=== PATIENT | female | born 1945 | race Caucasian/White ===

== ENCOUNTER → 2018-04-14 10:04 | Outpatient (CLI) | payer MEDICARE, SELFPAY ==
--- NOTE | 2018-04-14 | DI.MG.S_ITS ---
BILATERAL DIGITAL SCREENING MAMMOGRAM 3D/2D WITH CAD: 04/14/2018 CLINICAL: Routine screening. Family history of breast cancer. Comparison is made to exams dated: 03/04/2016 mammogram, 02/23/2015 mammogram, and 11/04/2013 mammogram - [facility]. There are scattered fibroglandular elements in both breasts. Current study was also evaluated with a Computer Aided Detection (CAD) system. There is an asymmetry in the right breast middle depth lateral region seen on the craniocaudal view only. No other significant masses, calcifications, or other findings are seen in either breast. IMPRESSION: INCOMPLETE: NEEDS ADDITIONAL IMAGING EVALUATION The asymmetry in the right breast is indeterminate. Additional views with possible ultrasound are recommended. This exam was interpreted at Station ID: [id number]. NOTE: For mammograms, a report in lay terms will be sent to the patient. Approximately 15% of breast malignancies will not be visualized mammographically. In the management of a palpable breast mass, a negative mammogram must not discourage biopsy of a clinically suspicious lesion. Electronically Signed By: Gian jean/evangelina:04/14/2018 11:21:38 letter sent: Additional Imaging Needed ACR BI-RADS Category 0: Incomplete 3340F
[2018-04-14 11:17] LABS: Add Manual Diff / Slide Review NO; Basophils Percent Auto 0.7 % (0-2); Eosinophils Percent Auto 3.1 % (2-4); Hematocrit 41.3 % (36-46); Hemoglobin 13.9 g/dL (12.0-16.0); Lymphocytes Percent Auto 27.8 % (25-40); Mean Corpuscular HGB Conc 33.7 % (30-36); Mean Corpuscular Hemoglobin 30.2 PG (26-34); Mean Corpuscular Volume 89.4 fL (80-100); Monocytes Percent Auto 10.5 % (3-14); Neutrophils Absolute Auto 3300 /uL (3000-5900); Neutrophils Percent Auto 57.9 % (50-75); Platelet Count 265 X10^3/uL (150-400); Red Blood Cell Count 4.62 X10^6/uL (4.0-5.2); White Blood Cell Count 5.8 X10^3/uL (4.5-11.0)
[2018-04-14 11:42] LABS: Alanine Aminotransferase 22 IU/L (9-52); Albumin 4.3 g/dL (3.5-5.0); Albumin Globulin Ratio 1.3 (1.0-2.8); Alkaline Phosphatase 69 U/L (38-126); Aspartate Aminotransferase 25 IU/L (14-36); BUN Creatinine Ratio 21.3 (6-22); Bilirubin Total 0.6 mg/dL (0.2-1.3); Blood Urea Nitrogen 17 mg/dL (7-17); Calcium 9.3 mg/dL (8.4-10.2); Carbon Dioxide 29 mmol/L (22-32); Chloride 103 mmol/L (98-107); Cholesterol 256 mg/dL (140-199); Estimated Glomerular Filt Rate > 60.0 mL/min (>60); Globulin 3.4 g/dL (1.7-4.1); Glucose 88 mg/dL (80-110); HDL Cholesterol 83 mg/dL (40-60); HEMOLYSIS < 15 (0-50); LDL Cholesterol Calculated 138 mg/dL (<100); Potassium 4.1 mmol/L (3.4-5.1); Sodium 143 mmol/L (137-145); Total Protein 7.7 g/dL (6.3-8.2); Triglycerides 174 mg/dL (35-150)
== END ==
PROVIDERS: Family Provider Family Medicine; PCP Family Medicine; Visit Provider Family Medicine
DX: Z12.31 Encounter for screening mammogram for malignant neoplasm of breast (principal); Z80.3 Family history of malignant neoplasm of breast; K57.92 Diverticulitis of intestine, part unspecified, without perforation or abscess without bleeding; E78.5 Hyperlipidemia, unspecified
CPT/HCPCS: 36415; 77063; 77067; 80053; 80061; 85025

== ENCOUNTER → 2018-04-16 10:06 | Outpatient (CLI) | payer MEDICARE, SELFPAY ==
--- NOTE | 2018-04-16 | DI.MG.S_ITS ---
UNILATERAL RIGHT DIGITAL DIAGNOSTIC MAMMOGRAM 3D/2D WITH ADDITIONAL VIEWS: 04/16/2018 CLINICAL: Additional evaluation requested from prior study. Family history of breast cancer. Comparison is made to exams dated: 04/14/2018 mammogram, 03/26/2017 mammogram, and 03/04/2016 mammogram - [facility]. There are scattered fibroglandular elements in the right breast. Prior mammographic finding is no longer seen in the right breast. This is consistent with overlapping fibroglandular tissue. No significant masses, calcifications, or other findings are seen in the breast. IMPRESSION: NEGATIVE There is no mammographic evidence of malignancy. A 1 year screening mammogram is recommended. This exam was interpreted at Station ID: [id number]. NOTE: For mammograms, a report in lay terms will be sent to the patient. Approximately 15% of breast malignancies will not be visualized mammographically. In the management of a palpable breast mass, a negative mammogram must not discourage biopsy of a clinically suspicious lesion. Electronically Signed By: Gian jean/evangelina:04/16/2018 12:30:44 letter sent: Normal Exam ACR BI-RADS Category 1: Negative 3341F
== END ==
PROVIDERS: Family Provider Family Medicine; PCP Family Medicine; Visit Provider Family Medicine
DX: R92.8 Other abnormal and inconclusive findings on diagnostic imaging of breast (principal); Z80.3 Family history of malignant neoplasm of breast
CPT/HCPCS: 77065; G0279

== ENCOUNTER → 2018-08-09 09:13 | Outpatient (CLI) | payer MEDICARE, SELFPAY ==
[2018-08-09 10:46] LABS: Alanine Aminotransferase 29 IU/L (9-52); Albumin 4.4 g/dL (3.5-5.0); Albumin Globulin Ratio 1.5 (1.0-2.8); Alkaline Phosphatase 66 U/L (38-126); Aspartate Aminotransferase 29 IU/L (14-36); BUN Creatinine Ratio 23.8 (6-22); Bilirubin Total 0.8 mg/dL (0.2-1.3); Blood Urea Nitrogen 19 mg/dL (7-17); Calcium 9.4 mg/dL (8.4-10.2); Carbon Dioxide 29 mmol/L (22-32); Chloride 104 mmol/L (98-107); Cholesterol 173 mg/dL (140-199); Estimated Glomerular Filt Rate > 60.0 mL/min (>60); Globulin 2.9 g/dL (1.7-4.1); Glucose 89 mg/dL (80-110); HDL Cholesterol 73 mg/dL (40-60); HEMOLYSIS < 15 (0-50); LDL Cholesterol Calculated 81 mg/dL (<100); Potassium 3.9 mmol/L (3.4-5.1); Sodium 144 mmol/L (137-145); Total Protein 7.3 g/dL (6.3-8.2); Triglycerides 93 mg/dL (35-150)
== END ==
PROVIDERS: Family Provider Family Medicine; PCP Family Medicine; Visit Provider Family Medicine
DX: E78.5 Hyperlipidemia, unspecified (principal)
CPT/HCPCS: 36415; 80053; 80061

== ENCOUNTER → 2019-05-10 10:20 | Outpatient (CLI) | payer MEDICARE, SELFPAY ==
--- NOTE | 2019-05-10 | DI.MG.S_ITS ---
BILATERAL DIGITAL SCREENING MAMMOGRAM 3D/2D WITH CAD: 05/10/2019 CLINICAL: Routine screening. Family history of breast cancer. Comparison is made to exams dated: 04/16/2018 mammogram, 04/14/2018 mammogram, 03/26/2017 mammogram, and 03/04/2016 mammogram - [facility]. There are scattered fibroglandular elements in both breasts. Current study was also evaluated with a Computer Aided Detection (CAD) system. No significant masses, calcifications, or other findings are seen in either breast. There has been no significant interval change. IMPRESSION: NEGATIVE There is no mammographic evidence of malignancy. A 1 year screening mammogram is recommended. This exam was interpreted at Station ID: [id number]. NOTE: For mammograms, a report in lay terms will be sent to the patient. Approximately 15% of breast malignancies will not be visualized mammographically. In the management of a palpable breast mass, a negative mammogram must not discourage biopsy of a clinically suspicious lesion. Electronically Signed By: Manjula guzman/evangelina:05/10/2019 13:02:08 letter sent: Normal Exam ACR BI-RADS Category 1: Negative 3341F
[2019-05-10 11:19] LABS: Add Manual Diff / Slide Review NO; Basophils Absolute Auto 0 /uL (0-100); Basophils Percent Auto 0.5 % (0-2); Eosinophils Absolute Auto 200 /uL (0-450); Eosinophils Percent Auto 2.8 % (2-4); Hematocrit 42.1 % (36-46); Hemoglobin 14.1 g/dL (12.0-16.0); Lymphocytes Absolute Auto 1600 /uL (1100-4500); Lymphocytes Percent Auto 22.5 % (25-40); Mean Corpuscular HGB Conc 33.6 % (30-36); Mean Corpuscular Hemoglobin 29.7 PG (26-34); Mean Corpuscular Volume 88.4 fL (80-100); Monocytes Absolute Auto 600 /uL (0-900); Monocytes Percent Auto 8.6 % (3-14); Neutrophils Absolute Auto 4600 /uL (1500-7000); Neutrophils Percent Auto 65.6 % (50-75); Platelet Count 245 X10^3/uL (150-400); Red Blood Cell Count 4.76 X10^6/uL (4.0-5.2); Red Cell Distribution Width 13.7 % (11.6-14.8)
[2019-05-10 11:43] LABS: Alanine Aminotransferase 53 IU/L (9-52); Albumin 4.5 g/dL (3.5-5.0); Albumin Globulin Ratio 1.5 (1.0-2.8); Alkaline Phosphatase 154 U/L (38-126); Aspartate Aminotransferase 49 IU/L (14-36); BUN Creatinine Ratio 21.1 (6-22); Bilirubin Total 0.5 mg/dL (0.2-1.3); Blood Urea Nitrogen 19 mg/dL (7-17); Calcium 9.6 mg/dL (8.4-10.2); Carbon Dioxide 29 mmol/L (22-32); Chloride 104 mmol/L (98-107); Cholesterol 174 mg/dL (140-199); Estimated Glomerular Filt Rate > 60.0 mL/min (>60); Glucose 86 mg/dL (80-110); HDL Cholesterol 95 mg/dL (40-60); HEMOLYSIS < 15 (0-50); LDL Cholesterol Calculated 66 mg/dL (<100); Potassium 3.9 mmol/L (3.4-5.1); Sodium 143 mmol/L (137-145); Total Protein 7.5 g/dL (6.3-8.2); Triglycerides 64 mg/dL (35-150)
== END ==
PROVIDERS: PCP Family Medicine; Visit Provider Family Medicine
DX: Z00.00 Encounter for general adult medical examination without abnormal findings (principal); Z12.31 Encounter for screening mammogram for malignant neoplasm of breast; Z80.3 Family history of malignant neoplasm of breast; E78.5 Hyperlipidemia, unspecified; Z13.6 Encounter for screening for cardiovascular disorders
CPT/HCPCS: 36415; 77063; 77067; 80053; 80061; 85025

== ENCOUNTER → 2019-08-18 11:38 | Outpatient (CLI) | payer MEDICARE, SELFPAY ==
[2019-08-18 12:48] LABS: Alanine Aminotransferase 42 IU/L (9-52); Albumin 4.5 g/dL (3.5-5.0); Albumin Globulin Ratio 1.6 (1.0-2.8); Alkaline Phosphatase 138 U/L (38-126); Aspartate Aminotransferase 42 IU/L (14-36); Bilirubin Total 0.7 mg/dL (0.2-1.3); Blood Urea Nitrogen 16 mg/dL (7-17); Calcium 9.5 mg/dL (8.4-10.2); Carbon Dioxide 29 mmol/L (22-32); Chloride 104 mmol/L (98-107); Estimated Glomerular Filt Rate > 60.0 mL/min (>60); Globulin 2.8 g/dL (1.7-4.1); Glucose 91 mg/dL (80-110); HEMOLYSIS < 15 (0-50); Potassium 4.3 mmol/L (3.4-5.1); Sodium 139 mmol/L (137-145); Total Protein 7.3 g/dL (6.3-8.2)
== END ==
PROVIDERS: PCP Family Medicine; Visit Provider Family Medicine
DX: R74.0 Nonspecific elevation of levels of transaminase and lactic acid dehydrogenase [LDH] (principal)
CPT/HCPCS: 36415; 80053

== ENCOUNTER → 2019-11-21 10:12 | Outpatient (CLI) | payer MEDICARE, SELFPAY ==
[2019-11-21 11:56] LABS: Alanine Aminotransferase 20 IU/L (<35); Albumin 4.4 g/dL (3.5-5.0); Albumin Globulin Ratio 1.4 (1.0-2.8); Alkaline Phosphatase 86 U/L (38-126); Aspartate Aminotransferase 27 IU/L (14-36); BUN Creatinine Ratio 17.8 (6-22); Bilirubin Total 0.6 mg/dL (0.2-1.3); Blood Urea Nitrogen 16 mg/dL (7-17); Calcium 9.5 mg/dL (8.4-10.2); Carbon Dioxide 26 mmol/L (22-32); Chloride 104 mmol/L (98-107); Cholesterol 244 mg/dL (140-199); Estimated Glomerular Filt Rate > 60.0 mL/min (>60); Globulin 3.1 g/dL (1.7-4.1); Glucose 95 mg/dL (80-110); HDL Cholesterol 67 mg/dL (40-60); HEMOLYSIS < 15 (0-50); LDL Cholesterol Calculated 142 mg/dL (<100); Sodium 139 mmol/L (137-145); Total Protein 7.5 g/dL (6.3-8.2); Triglycerides 176 mg/dL (35-150)
== END ==
PROVIDERS: PCP Family Medicine; Visit Provider Family Medicine
DX: E78.5 Hyperlipidemia, unspecified (principal); R94.5 Abnormal results of liver function studies
CPT/HCPCS: 36415; 80053; 80061

== ENCOUNTER → 2020-07-24 11:03 | Outpatient (CLI) | payer MEDICARE, SELFPAY ==
--- NOTE | 2020-07-24 | DI.MG.S_ITS ---
BILATERAL DIGITAL SCREENING MAMMOGRAM 3D/2D WITH CAD: 07/24/2020 CLINICAL: Routine screening. Family history of breast cancer. Comparison is made to exams dated: 05/10/2019 mammogram, 04/14/2018 mammogram, and 03/26/2017 mammogram - [facility]. There are scattered fibroglandular elements in both breasts. Current study was also evaluated with a Computer Aided Detection (CAD) system. No significant masses, calcifications, or other findings are seen in either breast. There has been no significant interval change. IMPRESSION: NEGATIVE There is no mammographic evidence of malignancy. A 1 year screening mammogram is recommended. This exam was interpreted at Station ID: [id number]. NOTE: For mammograms, a report in lay terms will be sent to the patient. Approximately 15% of breast malignancies will not be visualized mammographically. In the management of a palpable breast mass, a negative mammogram must not discourage biopsy of a clinically suspicious lesion. Electronically Signed By: Cameron Jay M.D., jr/evangelina:07/24/2020 11:43:09 letter sent: Normal Exam ACR BI-RADS Category 1: Negative 3341F
== END ==
PROVIDERS: PCP Family Medicine; Referring Provider Family Medicine; Visit Provider Family Medicine
DX: Z12.31 Encounter for screening mammogram for malignant neoplasm of breast (principal); Z80.3 Family history of malignant neoplasm of breast
CPT/HCPCS: 77063; 77067

== ENCOUNTER → 2020-08-23 09:35 | Outpatient (CLI) | payer MEDICARE, SELFPAY ==
[2020-08-23 12:09] LABS: Alanine Aminotransferase 21 IU/L (<35); Albumin 4.2 g/dL (3.5-5.0); Albumin Globulin Ratio 1.6 (1.0-2.8); Alkaline Phosphatase 85 U/L (38-126); Aspartate Aminotransferase 32 IU/L (14-36); Bilirubin Total 0.6 mg/dL (0.2-1.3); Blood Urea Nitrogen 15 mg/dL (7-17); Calcium 9.7 mg/dL (8.4-10.2); Carbon Dioxide 30 mmol/L (22-32); Chloride 105 mmol/L (98-107); Cholesterol 190 mg/dL (140-199); Estimated Glomerular Filt Rate > 60.0 mL/min (>60); Globulin 2.6 g/dL (1.7-4.1); Glucose 91 mg/dL (80-110); HDL Cholesterol 102 mg/dL (40-60); HEMOLYSIS < 15 (0-50); LDL Cholesterol Calculated 66 mg/dL (<100); Potassium 4.2 mmol/L (3.4-5.1); Sodium 139 mmol/L (137-145); Total Protein 6.8 g/dL (6.3-8.2); Triglycerides 110 mg/dL (35-150)
== END ==
PROVIDERS: PCP Family Medicine; Referring Provider Family Medicine; Visit Provider Family Medicine
DX: E66.3 Overweight (principal); E78.5 Hyperlipidemia, unspecified; R94.5 Abnormal results of liver function studies
CPT/HCPCS: 36415; 80053; 80061

== ENCOUNTER → 2020-09-13 14:41 | Outpatient (CLI) | payer MEDICARE, SELFPAY | PROVIDERS: PCP Family Medicine; Referring Provider Family Medicine; Visit Provider Family Medicine | DX: M85.852 Other specified disorders of bone density and structure, left thigh (principal); Z78.0 Asymptomatic menopausal state; Z82.62 Family history of osteoporosis | CPT/HCPCS: 77080 ==

== ENCOUNTER → 2021-08-23 08:35 | Outpatient (CLI) | payer OTHER, SELFPAY ==
--- NOTE | 2021-08-23 | DI.MG.S_ITS ---
BILATERAL DIGITAL SCREENING MAMMOGRAM 3D/2D WITH CAD: 08/23/2021 CLINICAL: Routine screening. Family history of breast cancer. Comparison is made to exams dated: 07/24/2020 mammogram, 05/10/2019 mammogram, 04/16/2018 mammogram, and 04/14/2018 mammogram - [facility]. There are scattered fibroglandular elements in both breasts. Current study was also evaluated with a Computer Aided Detection (CAD) system. There are benign vascular calcifications in both breasts. No significant masses, calcifications, or other findings are seen in either breast. There has been no significant interval change. IMPRESSION: BENIGN There is no mammographic evidence of malignancy. A 1 year screening mammogram is recommended. This exam was interpreted at Station ID: [id number]. NOTE: For mammograms, a report in lay terms will be sent to the patient. Approximately 15% of breast malignancies will not be visualized mammographically. In the management of a palpable breast mass, a negative mammogram must not discourage biopsy of a clinically suspicious lesion. Electronically Signed By: Chino Moreno acr/penrad:08/23/2021 09:03:33 letter sent: Normal Exam ACR BI-RADS Category 2: Benign Finding(s) 3342F
== END ==
PROVIDERS: PCP Family Medicine; Referring Provider Family Medicine; Visit Provider Family Medicine
DX: Z12.31 Encounter for screening mammogram for malignant neoplasm of breast (principal); Z80.3 Family history of malignant neoplasm of breast
CPT/HCPCS: 77063; 77067

== ENCOUNTER → 2021-11-08 09:46 | Outpatient (CLI) | payer OTHER, SELFPAY ==
[2021-11-08 13:14] LABS: Alanine Aminotransferase 14 IU/L (<35); Albumin 4.2 g/dL (3.5-5.0); Albumin Globulin Ratio 1.5 (1.0-2.8); Alkaline Phosphatase 70 U/L (38-126); Aspartate Aminotransferase 26 IU/L (14-36); BUN Creatinine Ratio 16.1 (6-22); Bilirubin Total 0.6 mg/dL (0.2-1.3); Blood Urea Nitrogen 14 mg/dL (7-17); Calcium 9.5 mg/dL (8.4-10.2); Carbon Dioxide 30 mmol/L (22-32); Chloride 104 mmol/L (98-107); Cholesterol 231 mg/dL (140-199); Estimated Glomerular Filt Rate > 60.0 mL/min (>60); Globulin 2.8 g/dL (1.7-4.1); Glucose 91 mg/dL (80-110); HDL Cholesterol 79 mg/dL (40-60); HEMOLYSIS < 15 (0-50); LDL Cholesterol Calculated 130 mg/dL (<100); Potassium 4.3 mmol/L (3.4-5.1); Sodium 140 mmol/L (137-145); Triglycerides 111 mg/dL (35-150)
== END ==
PROVIDERS: PCP Family Medicine; Referring Provider Family Medicine; Visit Provider Family Medicine
DX: E78.5 Hyperlipidemia, unspecified (principal); E66.3 Overweight; R79.89 Other specified abnormal findings of blood chemistry
CPT/HCPCS: 36415; 80053; 80061

== ENCOUNTER → 2021-12-31 09:42 | Outpatient (CLI) | payer OTHER, SELFPAY ==
[2021-12-31 11:52] LABS: BUN Creatinine Ratio 18.3 (6-22); Blood Urea Nitrogen 15 mg/dL (7-17); Calcium 9.6 mg/dL (8.4-10.2); Carbon Dioxide 30 mmol/L (22-32); Chloride 104 mmol/L (98-107); Estimated Glomerular Filt Rate > 60.0 mL/min (>60); Glucose 101 mg/dL (80-110); HEMOLYSIS < 15 (0-50); Potassium 4.1 mmol/L (3.4-5.1); Sodium 140 mmol/L (137-145)
== END ==
PROVIDERS: PCP Family Medicine; Referring Provider Urology; Visit Provider Urology
DX: N32.81 Overactive bladder (principal); Z85.51 Personal history of malignant neoplasm of bladder
CPT/HCPCS: 36415; 51798; 80048; 99214

== ENCOUNTER → 2022-01-01 13:36 | Outpatient (CLI) | payer OTHER, SELFPAY ==
[2022-01-01 14:25] LABS: Appearance Urine UA CLEAR; Bilirubin Urine UA NEGATIVE (NEGATIVE); Color Urine UA YELLOW; Glucose Urine UA NEGATIVE (Negative); Ketones Urine UA NEGATIVE (NEGATIVE); Leukocyte Esterase Urine UA NEGATIVE (NEGATIVE); Nitrite Urine UA NEGATIVE (Negative); Occult Blood Urine UA TRACE-LYSED (Negative); Protein Urine UA NEGATIVE (Negative); Specific Gravity Urine UA <=1.005 (1.000-1.035); Urobilinogen Urine UA 0.2 E.U./dL (0.2)
[2022-01-01 14:28] LABS: Bacteria Urine None Seen; Culture Indicated Urine Cult Not Indicated; RBC Urine None Seen (0-5/HPF); Urine Comments Microscopic Normal; WBC Urine None Seen (0-5/HPF)
== END ==
PROVIDERS: PCP Family Medicine; Referring Provider Urology; Visit Provider Urology
DX: R30.0 Dysuria (principal)
CPT/HCPCS: 81001

== ENCOUNTER → 2022-01-08 09:49 | Outpatient (CLI) | payer OTHER, SELFPAY ==
--- NOTE | 2022-01-08 09:50 | DI.CT.S_ITS ---
PROCEDURE: CT ABDOMEN PELVIS WO/W CON INDICATIONS: History of bladder cancer TECHNIQUE: Optional 5 mm thick noncontrast images acquired from the diaphragm to the symphysis pubis. After the administration of intravenous contrast, 5 mm thick images acquired from the diaphragm to the symphysis pubis after a 10-minute delay. 2 mm thick coronal and sagittal reformats were then performed of the kidneys and ureters. For radiation dose reduction, the following was used: automated exposure control, adjustment of mA and/or kV according to patient size. COMPARISON: [facility], CT, ABDOMEN/PELVIS WITH CONTRAST, 03/28/2016, 12:23. FINDINGS: Image quality: Excellent. Lung bases: Lung bases are clear. Heart size is normal. Urinary system: Both kidneys are normal in size, without hydronephrosis or nephrolithiasis on pre-contrast images. No perinephric fat stranding. There is normal bilateral renal enhancement. Renal calyces appear normal in morphology when filled with contrast. Opacified portions of both ureters demonstrate normal caliber. The urinary bladder is not well distended. No calcified bladder stones. Other solid organs: Liver is normal in size and enhancement. A 1.3 cm peripherally calcified lesion is seen in the left hepatic lobe, which may reflect a hemangioma (3-30). Gallbladder is within normal limits . Biliary system is non dilated. Pancreas enhances normally. Spleen is normal in size and enhancement. No adrenal nodules. Peritoneum and bowel: Small hiatal hernia. No evidence of intestinal obstruction. Colonic diverticulosis with focal wall thickening in the sigmoid colon (3-140). No free fluid or air. Normal appearance of the appendix. Nodes and vessels: No retroperitoneal or mesenteric adenopathy by size criteria. Aorta and inferior vena cava are normal in size. Abdominal wall: Small fat containing periumbilical hernia. Pelvis: No pathologic free pelvic fluid. No inguinal hernias or adenopathy. Bones: Diffuse osteopenia. Multifocal degenerative change. Minimal, superior endplate compression deformities of T10 and T12. IMPRESSION: 1. Acute sigmoid diverticulitis versus chronic change. 2. No evidence of obstructive uropathy. Dictated by: Cassius Jenkins M.D. on 01/08/2022 at 10:45 Approved by: Cassius Jenkins M.D. on 01/08/2022 at 10:59
== END ==
PROVIDERS: PCP Family Medicine; Referring Provider Urology; Visit Provider Urology
DX: R39.9 Unspecified symptoms and signs involving the genitourinary system (principal); K44.9 Diaphragmatic hernia without obstruction or gangrene; K42.9 Umbilical hernia without obstruction or gangrene; K57.30 Diverticulosis of large intestine without perforation or abscess without bleeding; R79.89 Other specified abnormal findings of blood chemistry; Z85.51 Personal history of malignant neoplasm of bladder
CPT/HCPCS: 74178; Q9967

== ENCOUNTER → 2022-08-07 11:43 | Outpatient (CLI) | payer OTHER, SELFPAY ==
[2022-08-07 13:26] LABS: Add Manual Diff / Slide Review NO; Appearance Urine UA CLEAR; Basophils Absolute Auto 0 /uL (0-100); Basophils Percent Auto 0.8 % (0-2); Bilirubin Urine UA NEGATIVE (NEGATIVE); Color Urine UA YELLOW; Eosinophils Absolute Auto 100 /uL (0-450); Eosinophils Percent Auto 2.5 % (2-4); Glucose Urine UA NEGATIVE (Negative); Hematocrit 43.1 % (36-46); Hemoglobin 14.3 g/dL (12.0-16.0); Ketones Urine UA NEGATIVE (NEGATIVE); Leukocyte Esterase Urine UA NEGATIVE (NEGATIVE); Lymphocytes Absolute Auto 1600 /uL (1100-4500); Lymphocytes Percent Auto 27.6 % (25-40); Mean Corpuscular HGB Conc 33.3 % (30-36); Mean Corpuscular Hemoglobin 30.3 PG (26-34); Mean Corpuscular Volume 90.8 fL (80-100); Monocytes Absolute Auto 800 /uL (0-900); Monocytes Percent Auto 13.9 % (3-14); Neutrophils Absolute Auto 3100 /uL (1500-7000); Neutrophils Percent Auto 55.2 % (50-75); Nitrite Urine UA NEGATIVE (Negative); Occult Blood Urine UA NEGATIVE (Negative); Platelet Count 244 X10^3/uL (150-400); Protein Urine UA NEGATIVE (Negative); Red Blood Cell Count 4.74 X10^6/uL (4.0-5.2); Red Cell Distribution Width 14.5 % (11.6-14.8); Urobilinogen Urine UA 0.2 E.U./dL (0.2); White Blood Cell Count 5.7 X10^3/uL (4.5-11.0)
[2022-08-07 13:28] LABS: pH Urine UA 6.5 (4.5-8.0)
[2022-08-07 13:36] LABS: Bacteria Urine None Seen; Culture Indicated Urine Cult Not Indicated; RBC Urine None Seen (0-5/HPF); Urine Comments Microscopic Normal; WBC Urine None Seen (0-5/HPF)
[2022-08-07 13:46] LABS: Alanine Aminotransferase 12 IU/L (<35); Albumin 4.2 g/dL (3.5-5.0); Albumin Globulin Ratio 1.5 (1.0-2.8); Alkaline Phosphatase 70 U/L (38-126); Aspartate Aminotransferase 23 IU/L (14-36); Bilirubin Total 0.6 mg/dL (0.2-1.3); Blood Urea Nitrogen 12 mg/dL (7-17); Calcium 8.8 mg/dL (8.4-10.2); Carbon Dioxide 28 mmol/L (22-32); Chloride 104 mmol/L (98-107); Estimated Glomerular Filt Rate > 60 mL/min (>60); Globulin 2.8 g/dL (1.7-4.1); Glucose 85 mg/dL (80-110); HEMOLYSIS < 15 (0-50); Potassium 4.1 mmol/L (3.4-5.1); Sodium 140 mmol/L (137-145)
[2022-08-07 14:07] LABS: TSH w/ Reflex to FT4 1.67 uIU/mL (0.47-4.68)
== END ==
PROVIDERS: PCP Family Medicine; Referring Provider Registered Nurse Diabetes Educator; Visit Provider Registered Nurse Diabetes Educator
DX: R42 Dizziness and giddiness (principal); R53.1 Weakness
CPT/HCPCS: 36415; 80053; 81001; 84443; 85025

== ENCOUNTER → 2022-10-30 12:35 | Outpatient (CLI) | payer OTHER, SELFPAY | PROVIDERS: PCP Family Medicine; Referring Provider Family Medicine; Visit Provider Family Medicine | DX: Z78.0 Asymptomatic menopausal state (principal); M85.852 Other specified disorders of bone density and structure, left thigh; Z13.820 Encounter for screening for osteoporosis; K63.9 Disease of intestine, unspecified; Z90.710 Acquired absence of both cervix and uterus | CPT/HCPCS: 77080 ==

== ENCOUNTER → 2022-11-05 10:00 | Outpatient (CLI) | payer OTHER, SELFPAY ==
[2022-11-05 12:07] LABS: COVID19 -Nasal RAPID Negative (Negative)
== END ==
PROVIDERS: PCP Family Medicine; Visit Provider Surgery
DX: Z20.822 Contact with and (suspected) exposure to COVID-19 (principal); Z01.812 Encounter for preprocedural laboratory examination
CPT/HCPCS: 87635; C9803

== ENCOUNTER 2022-11-06 12:41 | Day surgery (SDC) | payer OTHER, SELFPAY ==
[2022-11-06 13:48] VITALS: BP 148/90; PULSE 66; RESP 16; TEMP 36.9; O2SAT 96; BMI 26.5
[2022-11-06] MEDS: LACTATED RINGERS 1,000 ML 42 ML IV (13:55)
--- NOTE | 2022-11-06 14:13 | PM.HP.1 ---
History of Present Illness History of Present Illness Date Patient Seen: 11/06/22 Time Patient Seen: 14:13 [place] [facility] [place] Mouna is a 77-year-old woman who is here for colonoscopy. Her last 1 was about 10 years ago. She believes she has no family history of colon cancer. Patient History Medical History Asthma (1978) Chicken pox (1957) Diverticular disease (2009) Gastric ulcer (1986) Hayfever (1978) History of bladder cancer Mumps (1949) Osteopenia (2010) Overactive bladder Parasomnia Tinnitus (1994) Surgical History Anesthesia History of bladder surgery (2009) History of bladder surgery (2011) History of eye surgery (2008) History of sinus surgery (1991) History of sinus surgery (1993) History of sinus surgery (1995) Hx of cystoscopy Status post hysterectomy (1981) Family & Social History Family History Brother Hypertension High cholesterol Heart disease Brother Hypertension High cholesterol Stroke Aneurysm Brother Age: 84 Cancer of kidney Brother Age: 81 Heart disease Hypertension High cholesterol Child Age: 58 Breast cancer Thyroid cancer Mother Hypertension High cholesterol Osteoporosis Stroke Heart disease Brother Prostate enlargement History of prostate surgery Father No problems noted. Social History: household members spouse Tobacco & Substance use: Smoking Status Never smoker alcohol intake current alcohol intake frequency a few times a month Substance Use Type does not use Meds Home Medications and Allergies Home Medications Medication Instructions Recorded Confirmed Type aspirin 81 mg tablet,delayed 81 mg PO DAILY 04/22/18 11/06/22 History release calcium carb,calcium gluconate 500 tab PO 06/18/18 10/15/22 History mg-vit D2 5 mcg (200 unit) tablet fluticasone propionate 50 1 spray intranasal DAILY 06/18/18 10/15/22 History mcg/actuation nasal spray,suspension (Allergy Relief (fluticasone)) cranberry fruit concentrate 250 mg 250 mg PO TID 01/06/22 10/15/22 History chewable tablet (Azo Cranberry) prevagan PO 01/06/22 10/15/22 History vitamin B complex (B 1 tab PO DAILY 01/06/22 10/15/22 History Complex-Vitamin B12 tablet) atorvastatin 10 mg tablet 10 mg PO DAILY #90 tabs 08/05/22 11/06/22 Rx albuterol sulfate 90 mcg/actuation See Rx Instructions .Route 08/22/22 10/15/22 Rx aerosol inhaler .COMPLEX #8.5 grams fluticasone furoate 200 1 inh inhalation DAILY #60 ea 10/20/22 Rx mcg-vilanterol 25 mcg/dose inhalation powder (Breo Ellipta) sodium sul 1.479 gram-potas ch See Rx Instructions PO PER PKG DIR 11/04/22 Rx 0.188 gram-magnes sul 0.225 gram #24 tabs tablet (Sutab) Allergies Allergy/AdvReac Type Severity Reaction Status Date / Time No Known Drug Allergies Allergy Verified 11/06/22 13:43 Exam Vital Signs (past 8 hours): - 11/06/22 13:48 Temperature 98.4 F Pulse Rate 66 Respiratory Rate 16 Blood Pressure 148/90 H Pulse Oximetry 96 Oxygen Delivery Method Room Air Oxygen Delivery Method Room Air Const General: No acute distress Assessment & Plan Assessment and plan (1) Colon cancer screening: Status: Acute Plan Mouna is here for colon cancer screening. We reviewed the risks and benefits of colonoscopy and she would like to proceed. Time Spent With Patient Critical Care time: I spent a total of [] minutes of critical care time on this patient's care today; this time is exclusive of procedural time.
--- NOTE | 2022-11-06 14:43 | PM.OP.COLON ---
Operative Date/Time/Diagnoses Date of procedure: 11/06/22 Time of procedure: 14:44 Pre-op diagnosis: Colon cancer screening Post-op diagnosis: same Procedure & Clinicians Study performed: Sigmoidoscopy Same procedure as scheduled: Yes Surgeon: Vicente Lozada Procedure Notes Procedure in detail: Surgeon: Vicente Lozada MD Anesthesia: Kenneth Guthrie MD Procedure: The patient was brought to the endoscopy suite, placed in left lateral decubitus position. The patient was connected to monitoring devices. A time-out was performed. Sedation was administered. Once the patient was adequately sedated, a digital rectal exam was performed and was normal. The scope was then inserted and advanced to the mid sigmoid colon. She would extensive diverticulosis and a very sharp angulation in the mid sigmoid colon. It was impossible to advance through the sigmoid colon without an unacceptably high risk of perforating any of the large diverticula near the angle of the sigmoid colon. Therefore decision was made to abort and perform a sigmoidoscopy and offer a barium enema in the future. The scope was slowly withdrawn. No polyps were seen. Many diverticula were noted. The scope was retroflexed in the rectum and no abnormalities were seen. The scope was straightened and removed. The patient was awakened and brought to recovery. Scope withdrawal time: Not applicable Sedation time: 13 minutes EBL: 0 Findings: Sigmoid colon diverticulosis Post-procedure Plan for aftercare: The patient will be offered the opportunity have a barium enema to rule out the presence of malignancy in the proximal colon Disposition: PACU
[2022-11-06 14:52] VITALS: BP 97/68; PULSE 87; RESP 16; TEMP 36.2; O2SAT 95
[2022-11-06 14:57] VITALS: BP 114/79; PULSE 84; RESP 16; O2SAT 95
[2022-11-06 15:03] VITALS: BP 118/72; PULSE 84; RESP 18; O2SAT 96
== END 2022-11-06 15:53 | disposition home or self-care (01) ==
PROVIDERS: PCP Family Medicine; Referring Provider Surgery; Visit Provider Surgery
PROC: 0DJD8ZZ Inspection of Lower Intestinal Tract, Via Natural or Artificial Opening Endoscopic (ICD-10-PCS; CPT 45378; principal; 2022-11-06 12:45)
DX: Z12.11 Encounter for screening for malignant neoplasm of colon (principal); K57.30 Diverticulosis of large intestine without perforation or abscess without bleeding
CPT/HCPCS: G0104

== ENCOUNTER → 2023-04-07 10:10 | Outpatient (CLI) | payer OTHER, SELFPAY ==
--- NOTE | 2023-04-07 10:12 | DI.CT.S_ITS ---
PROCEDURE: CT ABDOMEN PELVIS WO/W CON INDICATIONS: History of bladder cancer rule out recurrence TECHNIQUE: Optional 5 mm thick noncontrast images acquired from the diaphragm to the symphysis pubis. After the administration of intravenous contrast, 5 mm thick images acquired from the diaphragm to the symphysis pubis after a 10-minute delay. 2 mm thick coronal and sagittal reformats were then performed of the kidneys and ureters. For radiation dose reduction, the following was used: automated exposure control, adjustment of mA and/or kV according to patient size. COMPARISON: [facility], CT, CT ABDOMEN PELVIS WO/W CON, 01/08/2022, 9:57. FINDINGS: Image quality: Excellent. Lung bases: Lung bases are clear. Heart size is normal. Urinary system: Both kidneys are normal in size, without hydronephrosis or nephrolithiasis on pre-contrast images. No perinephric fat stranding. There is normal bilateral renal enhancement. Renal calyces appear normal in morphology when filled with contrast. Opacified portions of both ureters demonstrate normal caliber. Bladder wall thickness is normal. No calcified bladder stones. Other solid organs: Liver is normal in size and enhancement. Gallbladder is unremarkable without calcified gallstones . Biliary system is non dilated. Pancreas enhances normally. Spleen is normal in size and enhancement. No adrenal nodules. Peritoneum and bowel: Extensive sigmoid diverticulosis with diffuse colonic diverticulosis and no evidence of acute diverticulitis. Normal appendix. Question rectocele. No free fluid or air. Nodes and vessels: No retroperitoneal or mesenteric adenopathy by size criteria. Aorta and inferior vena cava are normal in size. Abdominal wall: No ventral hernias. Pelvis: No pathologic free pelvic fluid. No inguinal hernias or adenopathy. Bones: No suspicious bony lesions. No acute vertebral body compression fractures mild chronic T12 compression.. IMPRESSION: 1. No evidence of renal stone, ureteral stone, hydronephrosis, or findings suspicious for malignancy. 2. Extensive sigmoid diverticulosis with diffuse colonic diverticulosis and no evidence of acute diverticulitis. Dictated by: Laz Prather M.D. on 04/07/2023 at 16:20 Approved by: Laz Prather M.D. on 04/07/2023 at 16:27
[2023-04-07 10:49] LABS: BUN Creatinine Ratio 19.5 (6-22); Blood Urea Nitrogen 15 mg/dL (7-17); Calcium 8.9 mg/dL (8.4-10.2); Carbon Dioxide 29 mmol/L (22-32); Chloride 103 mmol/L (98-107); Estimated Glomerular Filt Rate > 60 mL/min (>60); Glucose 96 mg/dL (80-110); HEMOLYSIS < 15 (0-50); Potassium 4.1 mmol/L (3.4-5.1); Sodium 138 mmol/L (137-145)
== END ==
PROVIDERS: PCP Family Medicine; Referring Provider Urology; Visit Provider Urology
DX: Z01.812 Encounter for preprocedural laboratory examination (principal); Z85.51 Personal history of malignant neoplasm of bladder; K57.30 Diverticulosis of large intestine without perforation or abscess without bleeding
CPT/HCPCS: 36415; 74178; 80048; Q9967

== ENCOUNTER → 2023-05-14 14:49 | Outpatient (CLI) | payer OTHER, SELFPAY | PROVIDERS: PCP Family Medicine; Visit Provider Urology | DX: N39.41 Urge incontinence (principal); N32.81 Overactive bladder; Z85.51 Personal history of malignant neoplasm of bladder | CPT/HCPCS: 51798; 81002; 87077; 87086; 87186; 99213 ==

== ENCOUNTER 2024-10-02 08:31 | Emergency (ER) | payer OTHER, SELFPAY ==
[2024-10-02 08:37] VITALS: BP 163/82; PULSE 89
--- NOTE | 2024-10-02 08:48 | ED.ABDPAIN ---
HPI - Abdominal Pain General Chief Complaint: Abdominal Pain Stated Complaint: abd pain Time Seen by Provider: 10/02/24 08:48 Source: patient and old records reviewed Mode of arrival: Ambulatory Limitations: no limitations History of Present Illness HPI narrative: 79-year-old female history of dyslipidemia, asthma, overactive bladder and prior diverticulitis who presents with complaint of left-sided upper abdominal pain that is started overnight. Patient states she did have little bit of fever yesterday that has not improved. Denies any chest pain or shortness of breath. No nausea or vomiting. No rash or skin changes. States she had a normal bowel movement in the last 24 hours. No dysuria, urgency or frequency. No back or flank pain. Patient states she has had diverticulitis before but it is typically lower down in her pelvic/abdominal region. States she has had prior colonoscopies and cystoscopies but no prior abdominal surgeries. States she takes medication for cholesterol, uses inhalers, no overactive bladder medication. States no known drug allergies. No tobacco, no alcohol, no recreational drugs. Related Data Home Medications Medication Instructions Recorded Confirmed aspirin 81 mg tablet,delayed 81 mg PO DAILY 04/22/18 09/20/24 release fluticasone propionate 50 1 spray intranasal DAILY 06/18/18 09/20/24 mcg/actuation nasal spray,suspension (Allergy Relief (fluticasone)) vitamin B complex (B 1 tab PO DAILY 01/06/22 09/20/24 Complex-Vitamin B12 tablet) magnesium chloride [Slow-Mag] PO 05/14/23 09/20/24 medium chain triglycerides [MCT PO 05/14/23 09/20/24 Oil] omega-3 fatty acids [Fish Oil] PO 05/14/23 09/20/24 turmeric PO 05/14/23 09/20/24 vitamin D3-vitamin K2 (MK4) PO DAILY 05/14/23 09/20/24 COVID vac 24-25(12up)(Pfi)(PF) 30 ml IM 09/20/24 09/20/24 mcg/0.3 mL IM syringe (Comirnaty (12y up)(PF)) flu vacc [id number](65yr up)-PF 180 ml IM 09/20/24 09/20/24 mcg/0.5 mL intramuscular syringe (Fluzone High-Dose Triv [id number] (PF)) Previous Rx's Medication Instructions Recorded albuterol sulfate 90 mcg/actuation 2 puff inhalation Q4-6H #8.5 grams 01/06/24 aerosol inhaler solifenacin 10 mg tablet 10 mg PO DAILY #90 tabs 05/27/24 prazosin 1 mg capsule 1 mg PO BEDTIME #60 caps 08/17/24 Breo Ellipta 200 mcg-25 mcg/dose 1 ea PO DAILY #60 ea 08/22/24 powder for inhalation (fluticasone furoate-vilanterol) atorvastatin 10 mg tablet 10 mg PO DAILY #90 tabs 08/22/24 amoxicillin 875 mg-potassium 1 tab PO BID 10 days #20 tabs 10/02/24 clavulanate 125 mg tablet Allergies Allergy/AdvReac Type Severity Reaction Status Date / Time No Known Drug Allergies Allergy Verified 09/20/24 09:13 Review of Systems Review of Systems ROS Unobtainable: All systems reviewed & are unremarkable except as noted in HPI and below Patient History Medical History Feeling of incomplete bladder emptying Urinary tract infection Urge incontinence Overactive bladder History of bladder cancer Parasomnia Asthma (1978) Chicken pox (1957) Hayfever (1978) Mumps (1949) Osteopenia (2010) Gastric ulcer (1986) Diverticular disease (2009) Tinnitus (1994) Surgical History Hx of cystoscopy Anesthesia History of bladder surgery (2011) History of bladder surgery (2009) History of eye surgery (2008) History of sinus surgery (1995) History of sinus surgery (1993) History of sinus surgery (1991) Status post hysterectomy (1981) Family History Brother Hypertension High cholesterol Heart disease Brother Hypertension High cholesterol Stroke Aneurysm Brother Age: 86 Cancer of kidney Brother Age: 83 Heart disease Hypertension High cholesterol Child Age: 60 Breast cancer Thyroid cancer Mother Hypertension High cholesterol Osteoporosis Stroke Heart disease Brother Prostate enlargement History of prostate surgery Father No problems noted. Social History marital status: household members: spouse Smoking Status: Never smoker alcohol intake: current Type(s) of exercise: walking frequency: daily Smoking Status: Never smoker alcohol intake frequency: a few times a month Substance Use Type: does not use Exam Narrative Exam Narrative: GENERAL: Alert and oriented x three, female in mild distress HEENT: Head normocephalic, atraumatic, EOMI, pupils reactive, face symmetric, moist mucous membranes NECK: Supple, full range of motion CARDIOVASCULAR: Regular rate and rhythm without murmurs, rubs or gallops. RESPIRATORY: Breath sounds equal bilaterally, no wheezes rales or rhonchi. ABDOMEN: Soft, patient was left lower quadrant and left upper quadrant tenderness on exam. No rash or skin changes. Normoactive bowel sounds all 4 quadrants. No guarding or rebound, rigidity, no mass, no pulsatile mass or bruit. : No CVA tenderness EXTREMITIES: Normal range of motion, no clubbing or edema. Neurovascularly intact NEUROLOGICAL: Cranial nerves II through XII grossly intact. Moving all extremities SKIN: Warm, dry, no petechiae, no rashes or lesions. Initial Vital Signs Initial Vital Signs: Vital Signs Pulse Rate 89 10/02/24 08:37 Blood Pressure 163/82 H 10/02/24 08:37 Course Orders Ordered: ED Orders 10/02/24 08:46 Complete Blood Count AUTO DIFF Stat Comprehensive Metabolic Panel Stat Lipase Stat Prothrombin Time INR Stat 10/02/24 08:51 EKG-12 Lead Stat 10/02/24 08:56 CT abdomen pelvis w con Stat Discontinued Medications Amoxicillin/Clavulanate Potassium (Amoxicillin/Clav 875/125 Mg) 1 tab PO NOW ONE Stop: 10/02/24 09:56 Last Admin: 10/02/24 10:03 Dose: 1 tab Documented By: TONYA Ondansetron HCl (Ondansetron 4 Mg/2 Ml Inj) 4 mg IV NOW PRN PRN Reason: Nausea And Vomiting Ondansetron HCl (Ondansetron 4 Mg Odt) 4 mg PO NOW PRN PRN Reason: Nausea And Vomiting Vital Signs Vital signs: Vital Signs - 8 hr 10/02/24 08:37 10/02/24 08:37 10/02/24 08:49 Temperature 98.5 F Pulse Rate 89 88 Respiratory Rate 16 Blood Pressure 163/82 H 163/82 H Pulse Oximetry 97 Oxygen Delivery Method Room Air 10/02/24 09:00 10/02/24 09:18 10/02/24 09:18 Temperature Pulse Rate 81 80 Respiratory Rate Blood Pressure 121/68 Pulse Oximetry 97 97 Oxygen Delivery Method 10/02/24 09:30 10/02/24 09:30 10/02/24 10:00 Temperature Pulse Rate 78 81 Respiratory Rate Blood Pressure 130/76 Pulse Oximetry 97 95 Oxygen Delivery Method 10/02/24 10:00 Temperature Pulse Rate Respiratory Rate Blood Pressure 122/72 Pulse Oximetry Oxygen Delivery Method MDM - Abdominal Pain Lab Data 10/02/24 08:46 10/02/24 08:46 Labs: Lab Results 10/02/24 Range/Units 08:46 WBC 11.0 (4.5-11.0) X10^3/uL RBC 4.52 (4.0-5.2) X10^6/uL Hgb 13.2 (12.0-16.0) g/dL Hct 39.7 (36-46) % MCV 87.9 (80-100) fL MCH 29.3 (26-34) PG MCHC 33.3 (30-36) % RDW 14.2 (11.6-14.8) % Plt Count 228 (150-400) X10^3/uL Neut % (Auto) 73.7 (50-75) % Lymph % (Auto) 10.4 L (25-40) % [place] % (Auto) 14.9 H (3-14) % Eos % (Auto) 0.7 L (2-4) % Baso % (Auto) 0.3 (0-2) % Neut # (Auto) 8100 H (5421-2554) /uL Lymph # (Auto) 1200 (5547-6273) /uL [place] # (Auto) 1600 H (0-900) /uL Eos # (Auto) 100 (0-450) /uL Baso # (Auto) 0 (0-100) /uL PT 11.4 (9.4-12.5) SECONDS INR 1.0 (0.9-1.3) Sodium 138 (137-145) mmol/L Potassium 3.9 (3.4-5.1) mmol/L Chloride 108 H (98-107) mmol/L Carbon Dioxide 25 (22-32) mmol/L BUN 14 (7-17) mg/dL Creatinine 0.85 (0.52-1.04) mg/dL Estimated GFR > 60 (>60) mL/min BUN/Creatinine Ratio 16.5 (6-22) Glucose 101 (80-110) mg/dL Calcium 8.7 (8.4-10.2) mg/dL Total Bilirubin 0.7 (0.2-1.3) mg/dL AST 28 (14-36) IU/L ALT 20 (<35) IU/L Alkaline Phosphatase 84 (38-126) U/L Total Protein 6.8 (6.3-8.2) g/dL Albumin 4.1 (3.5-5.0) g/dL Globulin 2.7 (1.7-4.1) g/dL Albumin/Globulin Ratio 1.5 (1.0-2.8) Lipase 44 (23-300) U/L Imaging Data CT scan - abdomen/pelvis: Radiologist's Impression: Close Abdomen/Pelvis CT (Signed) Spenser Salazar - 10/02/24 Launch?[place] [address] CT Scan Report Signed Patient: Mouna Su MR#: [id number] : 1945 Acct:[id number] Age/Sex: 79 / F Date of Service: 10/02/24 Loc: ED Accession Number: [id number] Procedure: CT abdomen pelvis w con Ordering Provider: Tyesha Cano D.O. PROCEDURE: CT ABDOMEN PELVIS W CON INDICATIONS: Left sided abd pain, lower and upper, hx diverticulitis TECHNIQUE: After the administration of intravenous contrast, axial sections acquired from the lung bases to the pubic symphysis. Coronal and sagittal reformats were performed. For radiation dose reduction, the following was used: automated exposure control, adjustment of mA and/or kV according to patient size. COMPARISON: [facility], CT, CT ABDOMEN PELVIS WO/W CON, 04/07/2023, 11:03. [facility], CT, CT ABDOMEN PELVIS WO/W CON, 01/08/2022, 9:57. FINDINGS: Image quality: Diagnostic. Lower Chest: No significant findings. ABDOMEN: Liver: No solid mass. Gallbladder: No radiopaque gallstones or wall thickening. Biliary ducts: No biliary dilation. Pancreas: No ductal dilation. Spleen: Size is within normal limits. Adrenal Glands: Generalized thickening can be seen of the adrenal glands, yet without focal adrenal nodules. Kidneys and Ureters: No hydronephrosis. No solid mass. No complex renal cystic lesion which requires follow up. Stomach and Bowel: Focal colonic wall thickening with surrounding inflammatory change can be seen involving the descending colon. Diverticula formation can be seen within this region. Significant diverticula formation can be seen elsewhere within colon, yet without associated inflammatory change. Normal appendix. No dilated loops of small bowel are seen. Peritoneum: No peritoneal abscess is seen. No abnormal intraperitoneal fluid. No free air. Ventral Wall: No significant ventral hernia. Abdominal Nodes: No retroperitoneal or mesenteric adenopathy by size criteria. Vessels: Aorta and inferior vena cava are normal in size. PELVIS: Pelvic Organs: No adnexal masses are seen on either side. Bladder: No bladder wall thickening, accounting for underdistention. Pelvic Nodes: No enlarged lymph nodes. Miscellaneous: No inguinal hernias are seen. Bones: No aggressive osseous abnormality. Mild dextroconvex scoliotic curvature is seen. There is a remote T12 compression deformity. Multiple levels of significant lumbar spine degenerative change are seen. IMPRESSION: Focal diverticulitis seen involving the descending colon. No findings of perforation or abscess can be seen. Additional findings: Remote T12 compression deformity Dextroconvex scoliotic curvature Generalized thickening of the adrenal glands Mild bilateral fat containing inguinal hernia Normal appendix Multiple levels of lumbar spine degenerative change Dictated by: Spenser Salazar M.D. on 10/02/2024 at 8:43 Approved by: Spenser Salazar M.D. on 10/02/2024 at 8:48 ECG Data Attestation: I personally reviewed and interpreted this ECG as follows: Interpretation: Sinus rhythm rate of 76 NE 192 QRS 2 QTC of 434, no acute ST changes. Nonspecific change. MDM Narrative Medical decision making narrative: 79-year-old female with complaint of left-sided abdominal pain little bit more upper than lower but on exam she was tender in the left lower quadrant as well. Patient had a fever yesterday afebrile here hypertensive. The setting of abdominal pain with fever CT abdomen pelvis was felt appropriate. Patient defers anything for pain. Labs white count of 11 hemoglobin of 13 platelets of 228 predominance of monocytes. Chemistries show sodium 138 potassium 3.9 chloride of 108 CO2 of 25 with a BUN of 14 creatinine 0.85 LFTs are negative lipase is 44. Urine EKG sinus rhythm, nonspecific change. CT abdomen pelvis focal colonic wall thickening with surrounding inflammatory change seen involving the ascending colon diverticula formation throughout patient also has a remote T12 compression deformity dextroconvex scoliotic curvature generalized thickening adrenal glands mild bilateral fat containing inguinal hernia multiple levels of lumbar spine degenerative changes. Discussed with patient we will treat for diverticulitis. Reviewed her CT findings. She was had evaluation been told she is osteopenia she takes vitamin-D daily. Reviewed all of her other imaging findings as well. We will give 1st dose of oral antibiotic here. Patient was nontoxic, well-appearing no signs of sepsis. Discussed return precautions all questions answered. Discharge Plan Departure Patient Disposition: Home Clinical Impression: Diverticulitis Instructions: DI for Diverticulitis Activity Restrictions/Additional Instructions: Your imaging shows changes consistent with diverticulitis, also noted to have bilateral fat containing inguinal hernias, some thickening of your adrenal glands and a remote or old T12 vertebral compression. You can take acetaminophen up to a 1000 mg every 6 hours as needed for pain. Take antibiotics until completed. Prescription [facility] to [facility] in [place]. Please return if you are having fevers for more than 24 hours, new or worsening abdominal back or flank pain, vomiting, lightheadedness or passing out, black or bloody stools or other new or concerning changes. Prescriptions: New amoxicillin-pot clavulanate 875-125 mg tablet 1 tab PO BID 10 Days Qty: 20 0RF No Action albuterol sulfate 90 mcg/actuation HFA aerosol inhaler 2 puff inhalation Q4-6H Qty: 8.5 1RF solifenacin 10 mg tablet 10 mg PO DAILY Qty: 90 3RF Breo Ellipta 200-25 mcg/dose blister with device 1 ea PO DAILY Qty: 60 0RF atorvastatin 10 mg tablet 10 mg PO DAILY Qty: 90 0RF aspirin 81 mg tablet,delayed release (DR/EC) 81 mg PO DAILY vitamin B complex [B Complex-Vitamin B12] Tablet 1 tab PO DAILY prazosin 1 mg capsule 1 mg PO BEDTIME Qty: 60 1RF Rx Instructions: After 2-3 days increase dose to 2 caps at bedtime, then if ineffective and no side effects increase by 1 cap every 7 days up to max 5 caps/day. Comirnaty 2023- (12y up)(PF) 30 mcg/0.3 mL syringe IM Fluzone High-Dose Triv 24-25 180 mcg/0.5 mL syringe IM fluticasone propionate [Allergy Relief (fluticasone)] 50 mcg/actuation spray,suspension 1 spray NASAL DAILY vitamin D3-vitamin K2 (MK4) PO DAILY omega-3 fatty acids [Fish Oil] PO medium chain triglycerides [MCT Oil] PO turmeric PO magnesium chloride [Slow-Mag] PO Referrals: Nicole Wilson DO [Primary Care Provider] - Stand Alone Forms: Patient Portal/API/Survey
[2024-10-02 08:49] VITALS: BP 163/82; PULSE 88; RESP 16; TEMP 36.9; O2SAT 97; BMI 25.7
--- NOTE | 2024-10-02 08:56 | DI.CT.S_ITS ---
PROCEDURE: CT ABDOMEN PELVIS W CON INDICATIONS: Left sided abd pain, lower and upper, hx diverticulitis TECHNIQUE: After the administration of intravenous contrast, axial sections acquired from the lung bases to the pubic symphysis. Coronal and sagittal reformats were performed. For radiation dose reduction, the following was used: automated exposure control, adjustment of mA and/or kV according to patient size. COMPARISON: [facility], CT, CT ABDOMEN PELVIS WO/W CON, 04/07/2023, 11:03. [facility], CT, CT ABDOMEN PELVIS WO/W CON, 01/08/2022, 9:57. FINDINGS: Image quality: Diagnostic. Lower Chest: No significant findings. ABDOMEN: Liver: No solid mass. Gallbladder: No radiopaque gallstones or wall thickening. Biliary ducts: No biliary dilation. Pancreas: No ductal dilation. Spleen: Size is within normal limits. Adrenal Glands: Generalized thickening can be seen of the adrenal glands, yet without focal adrenal nodules. Kidneys and Ureters: No hydronephrosis. No solid mass. No complex renal cystic lesion which requires follow up. Stomach and Bowel: Focal colonic wall thickening with surrounding inflammatory change can be seen involving the descending colon. Diverticula formation can be seen within this region. Significant diverticula formation can be seen elsewhere within colon, yet without associated inflammatory change. Normal appendix. No dilated loops of small bowel are seen. Peritoneum: No peritoneal abscess is seen. No abnormal intraperitoneal fluid. No free air. Ventral Wall: No significant ventral hernia. Abdominal Nodes: No retroperitoneal or mesenteric adenopathy by size criteria. Vessels: Aorta and inferior vena cava are normal in size. PELVIS: Pelvic Organs: No adnexal masses are seen on either side. Bladder: No bladder wall thickening, accounting for underdistention. Pelvic Nodes: No enlarged lymph nodes. Miscellaneous: No inguinal hernias are seen. Bones: No aggressive osseous abnormality. Mild dextroconvex scoliotic curvature is seen. There is a remote T12 compression deformity. Multiple levels of significant lumbar spine degenerative change are seen. IMPRESSION: Focal diverticulitis seen involving the descending colon. No findings of perforation or abscess can be seen. Additional findings: Remote T12 compression deformity Dextroconvex scoliotic curvature Generalized thickening of the adrenal glands Mild bilateral fat containing inguinal hernia Normal appendix Multiple levels of lumbar spine degenerative change Dictated by: Spenser Salazar M.D. on 10/02/2024 at 8:43 Approved by: Spenser Salazar M.D. on 10/02/2024 at 8:48
[2024-10-02 09:00] VITALS: PULSE 81; O2SAT 97
[2024-10-02 09:02] LABS: Add Manual Diff / Slide Review NO; Basophils Absolute Auto 0 /uL (0-100); Basophils Percent Auto 0.3 % (0-2); Eosinophils Absolute Auto 100 /uL (0-450); Eosinophils Percent Auto 0.7 % (2-4); Hematocrit 39.7 % (36-46); Hemoglobin 13.2 g/dL (12.0-16.0); Lymphocytes Absolute Auto 1200 /uL (1100-4500); Lymphocytes Percent Auto 10.4 % (25-40); Mean Corpuscular HGB Conc 33.3 % (30-36); Mean Corpuscular Hemoglobin 29.3 PG (26-34); Mean Corpuscular Volume 87.9 fL (80-100); Monocytes Absolute Auto 1600 /uL (0-900); Monocytes Percent Auto 14.9 % (3-14); Neutrophils Absolute Auto 8100 /uL (1500-7000); Neutrophils Percent Auto 73.7 % (50-75); Platelet Count 228 X10^3/uL (150-400); Red Blood Cell Count 4.52 X10^6/uL (4.0-5.2); Red Cell Distribution Width 14.2 % (11.6-14.8)
[2024-10-02 09:03] LABS: Prothrombin Time 11.4 SECONDS (9.4-12.5)
[2024-10-02 09:08] LABS: Alanine Aminotransferase 20 IU/L (<35); Albumin 4.1 g/dL (3.5-5.0); Albumin Globulin Ratio 1.5 (1.0-2.8); Alkaline Phosphatase 84 U/L (38-126); Aspartate Aminotransferase 28 IU/L (14-36); BUN Creatinine Ratio 16.5 (6-22); Bilirubin Total 0.7 mg/dL (0.2-1.3); Blood Urea Nitrogen 14 mg/dL (7-17); Calcium 8.7 mg/dL (8.4-10.2); Carbon Dioxide 25 mmol/L (22-32); Chloride 108 mmol/L (98-107); Estimated Glomerular Filt Rate > 60 mL/min (>60); Globulin 2.7 g/dL (1.7-4.1); Glucose 101 mg/dL (80-110); HEMOLYSIS < 15 (0-50); Lipase 44 U/L (23-300); Potassium 3.9 mmol/L (3.4-5.1); Sodium 138 mmol/L (137-145); Total Protein 6.8 g/dL (6.3-8.2)
[2024-10-02 09:18] VITALS: BP 121/68; PULSE 80; O2SAT 97
[2024-10-02 09:30] VITALS: BP 130/76; PULSE 78; O2SAT 97
--- NOTE | 2024-10-02 09:32 | EKG_ITS ---
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
[2024-10-02 10:00] VITALS: BP 122/72; PULSE 81; O2SAT 95
[2024-10-02] MEDS: AMOXICILLIN/CLAV 875/125 MG 1 TAB PO (10:03)
--- NOTE | 2024-10-02 10:14 | PC.NURSE ---
MD Cano stated urinalysis was not needed for DC
== END 2024-10-02 10:17 | disposition home or self-care (01) ==
PROVIDERS: Emergency Provider Emergency Medicine; PCP Family Medicine
DX: K57.92 Diverticulitis of intestine, part unspecified, without perforation or abscess without bleeding (principal); R50.9 Fever, unspecified; I10 Essential (primary) hypertension; R10.12 Left upper quadrant pain
CPT/HCPCS: 36415; 74177; 80053; 83690; 85025; 85610; 93005; 99283; 99284; Q9967

== ENCOUNTER → 2024-10-12 09:33 | Outpatient (CLI) | payer OTHER, SELFPAY ==
--- NOTE | 2024-10-12 09:34 | DI.MG.S_ITS ---
BILATERAL DIGITAL SCREENING MAMMOGRAM 3D/2D WITH CAD: 10/12/2024 CLINICAL: Routine screening. Family history of breast cancer. Comparison is made to exams dated: 08/23/2021 mammogram, 07/24/2020 mammogram, and 05/10/2019 mammogram - [facility]. There are scattered areas of fibroglandular density (category b / 25%-50% glandular tissue). Current study was also evaluated with a Computer Aided Detection (CAD) system. There are benign vascular calcifications in both breasts. No significant masses, calcifications, or other findings are seen in either breast. There has been no significant interval change. IMPRESSION: BENIGN There is no mammographic evidence of malignancy. A 1 year screening mammogram is recommended. Based on the Tyrer Cuzick model (a risk assessment model) the patient's lifetime risk is 0.9% and her 10 year risk is 0.0%. According to the ACR, ACS, and NCCN guidelines, an annual breast MRI exam along with mammogram is recommended if the patient's lifetime risk is 20% or greater. This exam was interpreted at Station ID: [id number]. NOTE: For mammograms, a report in lay terms will be sent to the patient. Approximately 15% of breast malignancies will not be visualized mammographically. In the management of a palpable breast mass, a negative mammogram must not discourage biopsy of a clinically suspicious lesion. Electronically Signed By: Manjula guzman/evangelina:10/12/2024 10:52:10 letter sent: Normal Exam ACR BI-RADS Category 2: Benign
== END ==
PROVIDERS: PCP Family Medicine; Referring Provider Family Medicine; Visit Provider Family Medicine
DX: Z12.31 Encounter for screening mammogram for malignant neoplasm of breast (principal); Z80.3 Family history of malignant neoplasm of breast
CPT/HCPCS: 77063; 77067

== ENCOUNTER → 2025-01-06 | Outpatient (CLI) | payer MEDICARE, SELFPAY ==
--- NOTE | 2025-01-06 09:23 | DI.RAD.S_ITS ---
PROCEDURE: FL BARIUM SWALLOW INDICATIONS: throat pain, hoarseness COMPARISON: None. FINDINGS: Function: There is normal esophageal peristalsis. Several episodes of gastroesophageal reflux to the inferior 3rd of the esophagus. There is normal transit of a calibrated barium tablet through the esophagus into the stomach. Morphology: Air-contrast images demonstrate normal mucosal morphology. Single contrast views show no esophageal strictures, extrinsic mass effects, or diverticula. Limited images of the stomach demonstrate normal appearance. IMPRESSION: Mild reflux. Dictated by: Melanie Peralta M.D. on 01/19/2025 at 12:07 Approved by: Melanie Peralta M.D. on 01/19/2025 at 12:07
== END ==
PROVIDERS: PCP Family Medicine; Visit Provider Radiology Neuroradiology
DX: K44.9 Diaphragmatic hernia without obstruction or gangrene (principal); R07.0 Pain in throat; R49.0 Dysphonia
CPT/HCPCS: 74220